=== PATIENT | female | born 1995 ===

== ENCOUNTER 2017-07-07 08:08 | Outpatient (CLI) | payer OTHER ==
--- NOTE | 2017-07-07 09:05 | XRay Report ---
RIGHT KNEE RADIOGRAPHS INDICATION: Right knee pain. COMPARISON: None similar at this institution. FINDINGS: Standing AP, lateral, oblique and tunnel right knee radiographs demonstrate intact bony articulation. Patella though appears situated somewhat high on the lateral view with patellar tendon length of 6.5 cm and patellar length of 3.9 cm with an Insall-Salvati ratio of 1.67 (abnormal greater than 1.2). Also, modified Insall-Salvati ratio is 6.9/3.2 = 2.16 (abnormal greater than 2). Normal soft tissues without evidence of suprapatellar effusion. 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 Please correlate. Thank you for the opportunity to participate in this patient's care.
== END 2017-07-07 08:09 | disposition home or self-care (01) ==
LOC: SPVIMAG 08:08
PROVIDERS: ATTEND Orthopaedic Surgery
DX: M25.561 Pain in right knee (principal)